=== PATIENT | female | born 1970 | race Caucasian/White ===

== ENCOUNTER → 2018-08-20 | Outpatient (CLI) | payer OTHER ==
--- NOTE | 2018-08-21 08:12 | MM ---
Reason for exam: screening (asymptomatic). Last mammogram was performed 4 years and 6 months ago. History: Family history of breast cancer in maternal aunt at age 50 and breast cancer in maternal grandmother. Took hormonal contraceptives for 4 years. Physical Findings: A clinical breast exam by your physician is recommended on an annual basis and results should be correlated with mammographic findings. MG Screening Mammo w CAD Bilateral CC and MLO view(s) were taken. Prior study comparison: February 12, 2014, bilateral MG screening mammo w CAD. There are scattered fibroglandular densities. There is chronic nodularity in the left breast. Ovoid isodense nodularity appear partially circumscribed, and is suspected to have been partially obscured previously. 6 month follow up recommended. ASSESSMENT: Probably benign, BI-RAD 3 RECOMMENDATION: Follow-up diagnostic mammogram of the left breast in 6 months.
== END | disposition home or self-care (01) ==
LOC: RADMAMWWP 07:17
PROVIDERS: ATTEND Obstetrics & Gynecology
DX: Z12.31 Encounter for screening mammogram for malignant neoplasm of breast (principal)
CPT/HCPCS: 77067

== ENCOUNTER → 2019-03-28 | Outpatient (CLI) | payer OTHER ==
--- NOTE | 2019-03-28 11:40 | MM ---
Reason for exam: follow-up at short interval from prior study. Last mammogram was performed 7 months ago. History: Patient is postmenopausal. Family history of breast cancer in maternal aunt at age 50 and breast cancer in maternal grandmother at age 60. Took hormonal contraceptives for 4 years beginning at age 15. Physical Findings: Nurse did not find any significant physical abnormalities on exam. MG 3D Diag Mammo W/Cad LT CC and MLO view(s) were taken of the left breast. Prior study comparison: August 20, 2018, bilateral MG screening mammo w CAD. February 12, 2014, bilateral MG screening mammo w CAD. There are scattered fibroglandular densities. Finding: There is an intermediate concern, suspicious 13mm and 10 mm high density mass in the outer aspect of the left breast consistent with possible mass. New finding since August 20, 2018 and February 12, 2014. These results were verbally communicated with the patient and result sheet given to the patient on 03/28/19. ASSESSMENT: Incomplete: need additional imaging evaluation, BI-RAD 0 RECOMMENDATION: Ultrasound of the left breast.
--- NOTE | 2019-03-28 11:42 | USB ---
Reason for exam: additional evaluation requested from abnormal screening. History: Patient is postmenopausal. Family history of breast cancer in maternal aunt at age 50 and breast cancer in maternal grandmother at age 60. Took hormonal contraceptives for 4 years beginning at age 15. US Breast Limited LT Left limited breast ultrasound including focal area of concern, retroareolar and axilla demonstrates a 4 x 4 x 5mm oval, cystic lesion with debris at 12 o'clock for which an aspiration is recommended, a 9 x 4 x 11mm cystic cluster at 12 o'clock and a 11 x 4 x 12mm mixed questionable cluster at 3 o'clock. These results were verbally communicated with the patient and result sheet given to the patient on 03/28/19. ASSESSMENT: Suspicious, BI-RAD 4 RECOMMENDATION: Aspiration of the left breast. Called Dr. Tubbs's office with mammographic findings and has scheduled an appointment for the patient for 04/24/19 at 4:[address] Mccarthy. Aspiration scheduled for 04/15/19 at 8:00. PRELIMINARY REPORT CALLED AND FAXED TO DR. MCCARTHY ON 03/28/19.
== END | disposition home or self-care (01) ==
LOC: RADMAMWWP 06:52
PROVIDERS: ATTEND Internal Medicine
DX: R92.8 Other abnormal and inconclusive findings on diagnostic imaging of breast (principal)
CPT/HCPCS: 77065; 76642; G0279; 77061

== ENCOUNTER → 2019-04-15 | Day surgery (SDC) | payer OTHER ==
[2019-04-15 07:15] VITALS: BP 129/77; PULSE 62; RESP 18; TEMP 98.9
--- NOTE | 2019-04-15 09:22 | USB ---
EXAMINATION TYPE: US biopsy breast VAD LT, MG diagnostic mammo LT wo CAD DATE OF EXAM: 04/15/2019 CLINICAL HISTORY: R92.8 abn mamm. TECHNIQUE: Ultrasound guided core biopsy of left breast. COMPARISON: 03/28/2019 FINDINGS: The procedure of ultrasound guided core biopsy was explained to the patient. Benefits, alternatives, and risks were discussed. An informed consent was then obtained. A procedural timeout was performed. The patient was placed in supine positioning for imaging and for the procedure. The overlying skin was prepped and draped in usual sterile fashion. Lidocaine buffered with bicarbonate was used as anesthetic into the skin and subcutaneous tissue up to a 5 mm, located cystic mass at the 12:00 position in the left breast. Under ultrasound guidance, a 12-gauge vacuum assisted biopsy gun device was used to obtain 3 core samples. Following this, a coil-shaped biopsy marker was left at the site of biopsy. Postprocedure mammogram demonstrates appropriate biopsy marker placement. The patient tolerated the procedure well without any immediate complication. The patient was kept in the radiology department for short stay after the procedure and then discharged home in stable condition. IMPRESSION: Successful, uncomplicated ultrasound guided core biopsy of a 5 mm complicated cystic mass at the 12:00 position in the left breast, full pathology results to follow. Pathology Results: Benign LEFT BREAST, NEEDLE CORE BIOPSIES: Fibrocystic spectrum disorder with stromal fibrosis, periductal inflammation and metaplastic changes. Recommendation Follow up mammogram of the left breast in 6 months. PAOLA
== END ==
LOC: RADPROMAIN 06:57
PROVIDERS: ATTEND Surgery
DX: N60.32 Fibrosclerosis of left breast (principal); N61.0 Mastitis without abscess
CPT/HCPCS: 88305; 77065; 19083; A4648; J2001

== ENCOUNTER → 2019-10-14 | Outpatient (CLI) | payer OTHER ==
--- NOTE | 2019-10-14 15:03 | MM ---
Reason for exam: follow-up at short interval from prior study. Last mammogram was performed 6 months ago. History: Patient is postmenopausal. Family history of breast cancer in maternal aunt at age 50 and breast cancer in maternal grandmother at age 60. Benign US biopsy breast VAD LT of the left breast, April 15, 2019. Took hormonal contraceptives for 4 years beginning at age 15. Physical Findings: Nurse did not find any significant physical abnormalities on exam. MG Diagnostic Mammo LT w CAD CC and MLO view(s) were taken of the left breast. Prior study comparison: April 15, 2019, left breast MG diagnostic mammo LT wo CAD. March 28, 2019, left breast MG 3d diag mammo w/cad LT. The breast tissue is heterogeneously dense. This may lower the sensitivity of mammography. Finding: There are typically benign dystrophic, round calcifications in the left breast. Previous mammotome biopsy in the left breast. There is a chronic nodularity in the left breast. There is no discrete abnormality. These results were verbally communicated with the patient and result sheet given to the patient on 10/14/19. ASSESSMENT: Benign, BI-RAD 2 RECOMMENDATION: Routine screening mammogram of both breasts in 6 months. Back on schedule.
== END | disposition home or self-care (01) ==
LOC: RADMAMWWP 07:35
PROVIDERS: ATTEND Surgery
DX: R92.8 Other abnormal and inconclusive findings on diagnostic imaging of breast (principal)
CPT/HCPCS: 77065

== ENCOUNTER → 2020-04-15 | Outpatient (CLI) | payer OTHER ==
--- NOTE | 2020-04-17 11:12 | MM ---
Reason for exam: screening (asymptomatic). Last mammogram was performed 6 months ago. History: Patient is postmenopausal. Family history of breast cancer in maternal aunt at age 50 and breast cancer in maternal grandmother at age 60. Benign US biopsy breast VAD LT of the left breast, April 15, 2019. Took hormonal contraceptives for 4 years beginning at age 15. Physical Findings: A clinical breast exam by your physician is recommended on an annual basis and results should be correlated with mammographic findings. MG Screening Mammo w CAD Bilateral CC and MLO view(s) were taken. Prior study comparison: October 14, 2019, left breast MG diagnostic mammo LT w CAD. April 15, 2019, left breast MG diagnostic mammo LT wo CAD. The breast tissue is heterogeneously dense. This may lower the sensitivity of mammography. There is no discrete abnormality. No significant changes when compared with prior studies. ASSESSMENT: Negative, BI-RAD 1 RECOMMENDATION: Routine screening mammogram of both breasts in 1 year.
== END | disposition home or self-care (01) ==
LOC: RADMAMWWP 09:45
PROVIDERS: ATTEND Surgery
DX: Z12.31 Encounter for screening mammogram for malignant neoplasm of breast (principal)
CPT/HCPCS: 77067